=== PATIENT | male | born 1975 | race Caucasian/White ===

== ENCOUNTER 2025-08-05 09:08 | Emergency (ER) | payer BC, SELFPAY ==
[2025-08-05 09:18] VITALS: BP 122/86; PULSE 55; RESP 16; O2SAT 97
--- NOTE | 2025-08-05 09:46 | ED.GENADUL_ITS ---
Discharge Plan Disposition Patient Disposition: Home Discharge Details Clinical Impression: Splinter Primary Care Provider: Farhad Taylor ED Provider: Lacy Dudley Home Meds and New Rx's Prescriptions: New cephalexin 500 mg capsule 500 mg PO TID 4 Days Qty: 12 0RF No Action lamotrigine [Lamictal] 100 mg tablet 100 mg PO BID tamsulosin 0.4 mg capsule 0.4 mg PO DAILY pregabalin 150 mg capsule 150 mg PO BID Discharge Instructions Additional Instructions: Please call Dr. Sweeney's office Friday to schedule follow-up appointment in the next week or so for reassessment. I encourage you to soak your finger in warm water for 10-15 minutes at a time 4- 5 times a day. I have also prescribed you prophylactic antibiotics to prevent infection. Wash daily antibacterial soap and water. Cover with a bandage. Keep an eye out for signs infection such as redness, swelling up the finger, pus drainage, fever/chills. If you notice any of these please seek care immediately. Referrals: Jim Sweeney MD [ [facility] STAFF PHYSICIAN, Orthopaedic Surgical] HPI General Date/Time Provider Initiated Documentation: 08/05/25 09:15 . HPI Narrative: Anh is a 50-year-old male who presents to the emergency department today for evaluation of splinter in the palmar aspect of his right index finger. He reports splinter lodged while working with plywood last night. Attempted removal unsuccessful, says the end broke off. Applied salve and kept wrapped overnight. No distal numbness/tingling, drainage from wound, difficulty bending/moving finger. No history of diabetes, immunocompromised conditions, recent antibiotics. He has had to have splinters surgically removed in the past. Primary care physician at [facility] [place]. Related Data Home Medications ?Medication ?Instructions ?Recorded ?Confirmed cephalexin 500 mg capsule 500 mg PO TID 4 days #12 cap s 08/05/25 lamotrigine 100 mg tablet 100 mg PO BID 08/05/2508/05 (Lamictal) pregabalin 150 mg capsule 150 mg PO BID 08/05/2508/05 tamsulosin 0.4 mg capsule 0.4 mg PO DAILY 08/05/2504/24 Previous Rx's ?Medication ?Instructions ?Recorded cephalexin 500 mg capsule 500 mg PO TID 4 days #12 cap s 08/05/25 Allergies Allergy/AdvReac Type Severity Reaction Status Date / Time No Known Allergies Allergy Unverified 08/05/25 09:21 General Stated Complaint: Laceration JULITA: 4 Exam Narrative Exam Narrative: General Appearance: Normal. Vital signs: Within normal limits. Extremities: Mild swelling to palmar aspect of MCP joint, unable to visualize or palpate FB under skin. No bleeding from entry/exit wounds (which are approx 1 inch apart). Full painless range of motion to fingers, able to fully extend and flex. Skin: Warm and dry, no rash. Neurological: Sensation intact in hand, 5/5 muscle strength to fingers and hand. Psychiatric: Normal. Course Vital Signs Vital signs: Vital Signs Pulse 55 L 08/05/25 09:18 Respiratory Rate 16 08/05/25 09:18 Blood Pressure 122/86 08/05/25 09:18 Pulse Oximetry 97 08/05/25 09:18 Pulse 55 L 08/05/25 09:18 Respiratory Rate 16 08/05/25 09:18 Blood Pressure 122/86 08/05/25 09:18 Pulse Oximetry 97 08/05/25 09:18 Oxygen Delivery Method Room Air 08/05/25 09:18 Oxygen Flow Rate 0 08/05/25 09:18 Medical Decision Making 50-year-old male with splinter in hand, consistent with inflammatory reaction, no concern at this time for cellulitis. As this is implanted firmly in the skin of hands, unable to easily extract. Based on location, exploration would not appropriate. Discussed case with Dr. Sweeney, who recommends conservative management and follow-up with him for reassessment. Discussed discharge instruction with patient, including prevention of infection. Will prescribe limited course of keflex for prophylaxis. Warm soaks 10-15 minutes, 4-5 times daily. Antibacterial ointment and daily washing with antibacterial soap and water advised. Antibiotics prescribed. Discharge: Home. Return if signs of infection or worsening condition. Follow up with primary care physician. Referral to hand surgery if complications arise. Patient education: Warm soaks, antibacterial ointment, daily washing, keep area covered with Band-Aid, not too tight. Patient consented to the use of TYRELL PFSH All Active Problems (Updated 08/05/25 @ 09:50 by Lacy Payan Splinter (Acute) Social History Smoking/Tobacco Use Status: Never Smoking risk assessment performed?: Yes Alcohol Intake: never Drug use: Never Substance use type: does not use Do you feel safe at home: Yes Do you feel safe in your relationship?: Yes
[2025-08-05] MEDS: Diph,Pertuss(Acell),Tet Vac/Pf 0.5 ML SYR IM (10:05)
[2025-08-05 10:15] VITALS: BP 127/82; PULSE 52; RESP 16; O2SAT 96
== END 2025-08-05 10:16 | disposition home or self-care (01) ==
PROVIDERS: Emergency Provider Nurse Practitioner Family; PCP Physician Assistant
DX: S60.450A Superficial foreign body of right index finger, initial encounter (principal); X58.XXXA Exposure to other specified factors, initial encounter; Z23 Encounter for immunization
CPT/HCPCS: 99283; 99284; 90471; 90715